=== PATIENT | female | born 1935 | race African-American/Black ===

== ENCOUNTER 2020-06-18 09:23 | Inpatient (IN) | payer BC ==
[~2020-06-18] VITALS: Ht 165.1 cm; Wt 70.4 kg
[2020-06-18 11:09] LABS: BASOPHILS % 0.7 % (0.0-2.0); EOSINOPHILS % 0.2 % (0.0-5.0); LYMPHOCYTES % 19.1 % (20.0-50.0); MEAN CORPUSCULAR HEMOGLOBIN 26.2 pg (28.0-32.0); MEAN CORPUSCULAR VOLUME 85.7 fL (81.0-99.0); MEAN PLATELET VOLUME 7.5 fl (7.4-10.4); MONOCYTES % 8.1 % (2.0-8.0); NEUTROPHILS % 71.9 % (40.0-76.0); PLATELET 206 x1000/uL (130-400); RED BLOOD CELL COUNT 2.04 mill/uL (4.2-5.4); RED CELL DISTRIBUTION WIDTH 17.5 % (11.6-14.6)
[2020-06-18 11:13] LABS: CHLORIDE 112 mEq/L (98-107); HEMOGLOBIN. 5.4 g/dL (12.0-16.0)
[2020-06-18 11:14] LABS: HEMATOCRIT. 17.5 % (36.0-48.0)
[2020-06-18] MEDS ORDERED: CLONIDINE 0.1MG TABLET PO PRN (20:45)
[2020-06-18] MEDS ORDERED: ONDANSETRON HCL 4MG/2ML INJ IV PRN (20:45)
[2020-06-18] MEDS ORDERED: DEXTROSE 50% WATER 50ML SYRINGE IV PRN (20:45)
[2020-06-18] MEDS ORDERED: ACETAMINOPHEN 325MG TABLET PO PRN (20:45)
[2020-06-18] MEDS: BLOOD SUGAR DIAGNOSTIC STRIP TEST SCH (21:00)
[2020-06-18] MEDS: INSULIN LISPRO 100 UNITS/ML SUBCUT SCH (21:50)
[2020-06-18] MEDS: SODIUM CHLORIDE 0.9% 1,000 ML IV SCH (21:50)
[2020-06-18] MEDS: PANTOPRAZOLE SODIUM 40 MG/VIAL IV SCH (21:50)
[2020-06-19] VITALS (9 sets, daily range): BP systolic 100–166; BP diastolic 60–75
[2020-06-19] MEDS: INSULIN LISPRO 100 UNITS/ML SUBCUT SCH ×4 (08:00→21:00)
[2020-06-19] MEDS: PHENYTOIN SODIUM EXTENDED 100MG CAPSULE PO SCH ×4 (08:03→23:24)
[2020-06-19] MEDS: BLOOD SUGAR DIAGNOSTIC STRIP TEST SCH ×4 (08:03→21:00)
[2020-06-19] MEDS: SODIUM CHLORIDE 0.9% 1,000 ML IV SCH (08:08)
[2020-06-19] MEDS: PANTOPRAZOLE SODIUM 40 MG/VIAL IV SCH (08:34)
[2020-06-19 09:43] LABS: HEMATOCRIT 25.9 % (36.0-48.0); HEMOGLOBIN 8.4 g/dL (12.0-16.0); MEAN CORPUSCULAR HEMOGLOBIN 27.5 pg (28.0-32.0); PLATELET 169 x1000/uL (130-400); RED BLOOD CELL COUNT 3.05 mill/uL (4.2-5.4); RED CELL DISTRIBUTION WIDTH 16.1 % (11.6-14.6)
[2020-06-19 09:59] LABS: CHLORIDE 115 mEq/L (98-107)
[2020-06-19] MEDS ORDERED: NIFE-53 PO (13:15)
[2020-06-19] MEDS ORDERED: CARV12.545 PO (13:15)
[2020-06-19] MEDS ORDERED: LISI-604 PO (13:15)
[2020-06-19] MEDS ORDERED: ASPI-1497 PO (13:15)
[2020-06-19] MEDS ORDERED: PHEN100C4 PO (13:15)
[2020-06-19] MEDS ORDERED: LEVO25TA7 PO (13:15)
[2020-06-19] MEDS ORDERED: ATOR-2 PO (13:28)
[2020-06-19] MEDS ORDERED: NETA2.5D BOTHEYE (13:28)
[2020-06-19] MEDS ORDERED: BRIM5DRO6 EACHEYE (13:28)
[2020-06-19] MEDS ORDERED: DORZ10DR9 EACHEYE (13:28)
[2020-06-19] MEDS ORDERED: LATA2.5D14 EACHEYE (13:28)
[2020-06-19] MEDS ORDERED: NON FORMULARY PATIENT HOME MED XX SCH ×4 (13:45)
[2020-06-19] MEDS ORDERED: ASPIRIN 81MG EC TABLET PO SCH (14:00)
[2020-06-19] MEDS: DORZOLAM/TIMOLOL 2.23/0.68% OPHTH DROPS 10ML EACHEYE SCH ×2 (15:02→23:22)
[2020-06-19] MEDS ORDERED: CLOP75TA33 PO (15:42)
[2020-06-19] MEDS: BRIMONIDINE 0.2% OPHTH DROPS 5ML BOTHEYE SCH (18:12)
[2020-06-19] MEDS ORDERED: NIFEDIPINE XL 30MG TAB PO SCH (21:00)
[2020-06-19] MEDS ORDERED: LISINOPRIL 20MG TABLET PO SCH (21:00)
[2020-06-19] MEDS: LATANOPROST 0.005% OPHTH DROPS 2.5ML EACHEYE SCH (23:22)
[2020-06-19] MEDS: ATORVASTATIN CALCIUM 40MG TABLET PO SCH (23:24)
[2020-06-20] VITALS: BP 124/82
[2020-06-20 04:00] VITALS: BP 99/69
[2020-06-20] MEDS: PHENYTOIN SODIUM EXTENDED 100MG CAPSULE PO SCH ×4 (06:25→17:20)
[2020-06-20] MEDS: BLOOD SUGAR DIAGNOSTIC STRIP TEST SCH ×4 (07:28→21:00)
[2020-06-20] MEDS: INSULIN LISPRO 100 UNITS/ML SUBCUT SCH ×4 (07:52→21:00)
[2020-06-20 08:00] VITALS: BP 103/59
[2020-06-20] MEDS: LEVOTHYROXINE SODIUM 25MCG TABLET PO SCH (08:18)
[2020-06-20] MEDS: BRIMONIDINE 0.2% OPHTH DROPS 5ML BOTHEYE SCH ×2 (08:20→17:20)
[2020-06-20] MEDS: DORZOLAM/TIMOLOL 2.23/0.68% OPHTH DROPS 10ML EACHEYE SCH ×2 (08:22→21:56)
[2020-06-20] MEDS: PANTOPRAZOLE SODIUM 40 MG/VIAL IV SCH (08:24)
[2020-06-20 08:26] LABS: CHLORIDE 116 mEq/L (98-107)
[2020-06-20 08:38] LABS: HEMATOCRIT 23.4 % (36.0-48.0); HEMOGLOBIN 7.6 g/dL (12.0-16.0); MEAN CORPUSCULAR HEMOGLOBIN 27.5 pg (28.0-32.0); MEAN CORPUSCULAR VOLUME 84.7 fL (81.0-99.0); PLATELET 161 x1000/uL (130-400); RED BLOOD CELL COUNT 2.76 mill/uL (4.2-5.4); RED CELL DISTRIBUTION WIDTH 16.1 % (11.6-14.6)
[2020-06-20] MEDS ORDERED: INFLUENZA VACCINE 05/PF 0.5 ML VIAL IM ONE (11:15)
[2020-06-20 12:00] VITALS: BP 120/68
[2020-06-20] MEDS ORDERED: SORBITOL 70% SOLN 30ML PO NR ×2 (15:45→21:00)
[2020-06-20 16:00] VITALS: BP 125/58
[2020-06-20] MEDS ORDERED: METOCLOPRAMIDE HCL 10MG/2ML VIAL IV NR ×2 (16:30→20:30)
[2020-06-20] MEDS ORDERED: BISACODYL 5MG TABLET PO NR ×2 (16:30→20:30)
[2020-06-20 20:00] VITALS: BP 92/66
[2020-06-20] MEDS: LATANOPROST 0.005% OPHTH DROPS 2.5ML EACHEYE SCH (21:56)
[2020-06-20] MEDS: ATORVASTATIN CALCIUM 40MG TABLET PO SCH (22:05)
[2020-06-21] VITALS (7 sets, daily range): BP systolic 98–136; BP diastolic 58–73
[2020-06-21 07:08] LABS: BASOPHILS % 0.6 % (0.0-2.0); EOSINOPHILS % 0.5 % (0.0-5.0); HEMOGLOBIN. 9.1 g/dL (12.0-16.0); LYMPHOCYTES % 22.8 % (20.0-50.0); MEAN CORPUSCULAR HEMOGLOBIN 27.2 pg (28.0-32.0); MEAN CORPUSCULAR VOLUME 86.4 fL (81.0-99.0); MEAN PLATELET VOLUME 7.9 fl (7.4-10.4); MONOCYTES % 14.3 % (2.0-8.0); NEUTROPHILS % 61.8 % (40.0-76.0); PLATELET 179 x1000/uL (130-400); RED BLOOD CELL COUNT 3.35 mill/uL (4.2-5.4); RED CELL DISTRIBUTION WIDTH 16.6 % (11.6-14.6)
[2020-06-21 07:22] LABS: INR 1.1; PROTHROMBIN TIME 11.4 sec (9.6-11.0)
[2020-06-21] MEDS: BLOOD SUGAR DIAGNOSTIC STRIP TEST SCH ×4 (07:30→21:00)
[2020-06-21] MEDS: LEVOTHYROXINE SODIUM 25MCG TABLET PO SCH (07:30)
[2020-06-21 07:31] LABS: CHLORIDE 119 mEq/L (98-107)
[2020-06-21] MEDS: INSULIN LISPRO 100 UNITS/ML SUBCUT SCH ×3 (08:00→21:00)
[2020-06-21] MEDS: PHENYTOIN SODIUM EXTENDED 100MG CAPSULE PO SCH ×3 (08:46→17:00)
[2020-06-21] MEDS: PANTOPRAZOLE SODIUM 40 MG/VIAL IV SCH (08:46)
[2020-06-21] MEDS: BRIMONIDINE 0.2% OPHTH DROPS 5ML BOTHEYE SCH ×2 (08:48→22:16)
[2020-06-21] MEDS: DORZOLAM/TIMOLOL 2.23/0.68% OPHTH DROPS 10ML EACHEYE SCH ×2 (08:48→22:16)
[2020-06-21] MEDS ORDERED: FENTANYL CITRATE/PF 50MCG/ML 2ML VIAL IV PRN (15:35)
[2020-06-21] MEDS ORDERED: MIDAZOLAM HCL 5 MG/5 ML VIAL IV PRN (15:36)
[2020-06-21] MEDS ORDERED: DIAZEPAM 5 MG/ML 2ML CPJ IV PRN (15:52)
[2020-06-21] MEDS ORDERED: DIAZEPAM 5 MG/ML 2ML CPJ ONE (15:57)
[2020-06-21] MEDS ORDERED: DIPHENHYDRAMINE 50MG/ML VIAL IV PRN (16:20)
[2020-06-21] MEDS ORDERED: DIPHENHYDRAMINE 50MG/ML VIAL ONE ×2 (16:24→16:34)
[2020-06-21] MEDS ORDERED: FENTANYL CITRATE/PF 50MCG/ML 2ML VIAL ONE (17:17)
[2020-06-21] MEDS ORDERED: MIDAZOLAM HCL 5 MG/5 ML VIAL ONE (17:17)
[2020-06-21] MEDS: ATORVASTATIN CALCIUM 40MG TABLET PO SCH (21:00)
[2020-06-21] MEDS: LATANOPROST 0.005% OPHTH DROPS 2.5ML EACHEYE SCH (22:16)
[2020-06-22] VITALS (7 sets, daily range): BP systolic 102–154; BP diastolic 48–75
[2020-06-22] MEDS: BLOOD SUGAR DIAGNOSTIC STRIP TEST SCH ×4 (07:30→21:08)
[2020-06-22] MEDS: LEVOTHYROXINE SODIUM 25MCG TABLET PO SCH (07:30)
[2020-06-22] MEDS: INSULIN LISPRO 100 UNITS/ML SUBCUT SCH ×4 (08:00→21:00)
[2020-06-22] MEDS: DEXT 5%/0.45% NACL 1000ML 1,000 ML IV SCH ×2 (08:47→20:20)
[2020-06-22] MEDS: BRIMONIDINE 0.2% OPHTH DROPS 5ML BOTHEYE SCH ×2 (08:48→17:00)
[2020-06-22] MEDS: LATANOPROST 0.005% OPHTH DROPS 2.5ML EACHEYE SCH (08:48)
[2020-06-22] MEDS: DORZOLAM/TIMOLOL 2.23/0.68% OPHTH DROPS 10ML EACHEYE SCH ×2 (08:48→21:18)
[2020-06-22] MEDS: PANTOPRAZOLE SODIUM 40 MG/VIAL IV SCH (08:48)
[2020-06-22] MEDS: PHENYTOIN SODIUM EXTENDED 100MG CAPSULE PO SCH ×3 (08:49→17:00)
[2020-06-22 12:37] LABS: BASOPHILS % 0.6 % (0.0-2.0); EOSINOPHILS % 0.9 % (0.0-5.0); HEMOGLOBIN. 9.2 g/dL (12.0-16.0); LYMPHOCYTES % 19.6 % (20.0-50.0); MEAN CORPUSCULAR HEMOGLOBIN 27.5 pg (28.0-32.0); MEAN PLATELET VOLUME 7.5 fl (7.4-10.4); MONOCYTES % 12.9 % (2.0-8.0); PLATELET 180 x1000/uL (130-400); RED BLOOD CELL COUNT 3.34 mill/uL (4.2-5.4); RED CELL DISTRIBUTION WIDTH 16.4 % (11.6-14.6)
[2020-06-22 12:55] LABS: TOTAL IRON BINDING CAPACITY 341 ug/dL (250-450)
[2020-06-22 12:59] LABS: FERRITIN 27 ng/mL (10-291)
[2020-06-22 14:52] LABS: FOLIC ACID (FOLATE) SERUM >20 ng/mL ng/mL (>5.38)
[2020-06-22 15:03] LABS: VITAMIN B12 SERUM 918 pg/mL (211-911)
[2020-06-22 20:20] LABS: BG BASE EXCESS -9.9 mmol/L (-2.0-2.0); BG CARBOXYHEMOGLOBIN 0.1 % (0.5-1.5); BG DEOXYHEMOGLOBIN 3.9 % (0.0-5.0); BG HCO3 ACT 14.5 mmol/L (22.0-26.0); BG METHEMOGLOBIN 0.1 % (0.0-1.5); BG OXYGEN SATURATION 96.1 % (92.0-98.5); BG OXYHEMOGLOBIN 95.9 % (94.0-97.0); BG PCO2 26.8 mmHg (35.0-45.0); BG SAMPLE SITE RIGHT RADIAL; BG TOTAL HEMOGLOBIN 9.5 g/dL (12.0-18.0); BG VENT MODE ROOM AIR
[2020-06-22] MEDS: ATORVASTATIN CALCIUM 40MG TABLET PO SCH (21:00)
[2020-06-22] MEDS ORDERED: LEVOFLOXACIN 500MG PREMIX 100 ML IV SCH (21:00)
[2020-06-22] MEDS: GUAIFENESIN 600MG ER TABLET PO SCH (21:00)
[2020-06-23] VITALS: BP 129/71
[2020-06-23] MEDS: ACETAMINOPHEN 650MG SUPP PR PRN ×2 (01:38→23:26)
[2020-06-23 04:00] VITALS: BP 142/85
[2020-06-23 06:45] LABS: BASOPHILS % 0.6 % (0.0-2.0); EOSINOPHILS % 0.2 % (0.0-5.0); HEMOGLOBIN. 8.5 g/dL (12.0-16.0); LYMPHOCYTES % 9.3 % (20.0-50.0); MEAN CORPUSCULAR HEMOGLOBIN 27.2 pg (28.0-32.0); MEAN CORPUSCULAR VOLUME 86.5 fL (81.0-99.0); MEAN PLATELET VOLUME 8.2 fl (7.4-10.4); MONOCYTES % 12.2 % (2.0-8.0); NEUTROPHILS % 77.7 % (40.0-76.0); PLATELET 110 x1000/uL (130-400); RED BLOOD CELL COUNT 3.12 mill/uL (4.2-5.4); RED CELL DISTRIBUTION WIDTH 16.2 % (11.6-14.6)
[2020-06-23 07:02] LABS: CHLORIDE 122 mEq/L (98-107)
[2020-06-23] MEDS: LEVOTHYROXINE SODIUM 25MCG TABLET PO SCH (07:30)
[2020-06-23] MEDS ORDERED: SODIUM BICARBONATE 4% (2.4MEQ) 5ML VIAL IV ONE (08:03)
[2020-06-23] MEDS ORDERED: LIDOCAINE HCL 1% 20ML VIAL (Pyxis) INJ ONE (08:04)
[2020-06-23] MEDS: BRIMONIDINE 0.2% OPHTH DROPS 5ML BOTHEYE SCH ×2 (09:00→17:18)
[2020-06-23] MEDS: GUAIFENESIN 600MG ER TABLET PO SCH ×2 (09:00→21:00)
[2020-06-23] MEDS: PHENYTOIN SODIUM EXTENDED 100MG CAPSULE PO SCH ×3 (09:00→17:00)
[2020-06-23] MEDS: DORZOLAM/TIMOLOL 2.23/0.68% OPHTH DROPS 10ML EACHEYE SCH ×2 (09:00→23:04)
[2020-06-23] MEDS ORDERED: IOHEXOL-300 100 ML BOTTLE ONE (09:42)
[2020-06-23] MEDS ORDERED: PIPERACILLIN/TAZOBACTAM 3.375 G/VIAL IV SCH (10:00)
[2020-06-23 12:00] VITALS: BP 116/45
[2020-06-23] MEDS: INSULIN LISPRO 100 UNITS/ML SUBCUT SCH ×3 (12:42→21:00)
[2020-06-23] MEDS: FERROUS SULFATE 300MG/5ML UDC PO SCH ×2 (12:50→17:18)
[2020-06-23] MEDS: BLOOD SUGAR DIAGNOSTIC STRIP TEST SCH ×3 (12:59→21:00)
[2020-06-23] MEDS: ASCORBIC ACID 500 MG TABLET PO SCH (13:00)
[2020-06-23] MEDS: DEXT 5%/0.45% NACL 1000ML 1,000 ML IV SCH ×2 (13:27→23:05)
[2020-06-23] MEDS: PIPERACILLIN/TAZOBACTAM 3.375 G in DEXT 5% WATER 100 ML IV SCH ×2 (13:27→23:02)
[2020-06-23] MEDS ORDERED: LEVOFLOXACIN 250MG PREMIX 50 ML IV SCH ×2 (14:00→21:00)
[2020-06-23 20:00] VITALS: BP 125/52
[2020-06-23] MEDS: LATANOPROST 0.005% OPHTH DROPS 2.5ML EACHEYE SCH (23:04)
[2020-06-23] MEDS: CARVEDILOL 12.5MG TABLET PO SCH (23:12)
[2020-06-23] MEDS: ATORVASTATIN CALCIUM 40MG TABLET PO SCH (23:12)
[2020-06-24] MEDS: PIPERACILLIN/TAZOBACTAM 3.375 G in DEXT 5% WATER 100 ML IV SCH ×2 (03:15→11:11)
[2020-06-24] MEDS ORDERED: NON FORMULARY PATIENT HOME MED PO PRN (06:15)
[2020-06-24] MEDS ORDERED: GUAIFENESIN/CODEINE 200-20MG/10ML UDC PO PRN (06:30)
[2020-06-24] MEDS: DEXT 5%/0.45% NACL 1000ML 1,000 ML IV SCH ×2 (07:12→18:45)
[2020-06-24] MEDS: LEVOTHYROXINE SODIUM 25MCG TABLET PO SCH (07:20)
[2020-06-24 07:29] LABS: BASOPHILS % 0.3 % (0.0-2.0); EOSINOPHILS % 0.2 % (0.0-5.0); HEMATOCRIT. 25.8 % (36.0-48.0); HEMOGLOBIN. 8.2 g/dL (12.0-16.0); LYMPHOCYTES % 11.6 % (20.0-50.0); MEAN CORPUSCULAR HEMOGLOBIN 27.3 pg (28.0-32.0); MEAN CORPUSCULAR VOLUME 86.1 fL (81.0-99.0); MEAN PLATELET VOLUME 7.5 fl (7.4-10.4); MONOCYTES % 13.2 % (2.0-8.0); NEUTROPHILS % 74.7 % (40.0-76.0); PLATELET 160 x1000/uL (130-400); RED BLOOD CELL COUNT 2.99 mill/uL (4.2-5.4); RED CELL DISTRIBUTION WIDTH 16.4 % (11.6-14.6)
[2020-06-24 07:41] LABS: CHLORIDE 118 mEq/L (98-107)
[2020-06-24] MEDS: INSULIN LISPRO 100 UNITS/ML SUBCUT SCH ×4 (07:48→21:00)
[2020-06-24] MEDS: BLOOD SUGAR DIAGNOSTIC STRIP TEST SCH ×4 (07:48→21:00)
[2020-06-24] MEDS: FERROUS SULFATE 300MG/5ML UDC PO SCH ×3 (07:50→17:50)
[2020-06-24 08:00] VITALS: BP 108/58
[2020-06-24] MEDS: PHENYTOIN SODIUM EXTENDED 100MG CAPSULE PO SCH ×3 (09:00→17:00)
[2020-06-24] MEDS: ASCORBIC ACID 500 MG TABLET PO SCH (09:00)
[2020-06-24] MEDS: GUAIFENESIN 600MG ER TABLET PO SCH ×2 (09:00→21:00)
[2020-06-24] MEDS: CARVEDILOL 12.5MG TABLET PO SCH ×2 (09:00→21:00)
[2020-06-24] MEDS: PANTOPRAZOLE SODIUM 40 MG/VIAL IV SCH ×2 (10:58→11:11)
[2020-06-24] MEDS: DORZOLAM/TIMOLOL 2.23/0.68% OPHTH DROPS 10ML EACHEYE SCH ×2 (10:59→21:00)
[2020-06-24] MEDS: BRIMONIDINE 0.2% OPHTH DROPS 5ML BOTHEYE SCH ×2 (10:59→18:45)
[2020-06-24] MEDS ORDERED: IOHEXOL-350 100 ML BOTTLE ONE (13:44)
[2020-06-24] MEDS: LORAZEPAM 2MG/ML CPJ IV PRN (14:54)
[2020-06-24] MEDS: MEROPENEM 1,000 MG in SODIUM CHLORIDE 0.9% 100 ML IV SCH ×2 (14:54→22:13)
[2020-06-24] MEDS: ENOXAPARIN 80MG/0.8ML SYR SUBCUT SCH ×2 (14:55→23:33)
[2020-06-24 16:00] VITALS: BP 147/64
[2020-06-24 17:23] LABS: BG BASE EXCESS -8.8 mmol/L (-2.0-2.0); BG CARBOXYHEMOGLOBIN 0.3 % (0.5-1.5); BG DEOXYHEMOGLOBIN 2.7 % (0.0-5.0); BG FRACTION INSPIRED OXYGEN 21; BG HCO3 ACT 15.4 mmol/L (22.0-26.0); BG METHEMOGLOBIN 0.3 % (0.0-1.5); BG OXYGEN SATURATION 97.3 % (92.0-98.5); BG OXYHEMOGLOBIN 96.7 % (94.0-97.0); BG PCO2 27.2 mmHg (35.0-45.0); BG PH 7.371 (7.350-7.450); BG PO2 93.3 mmHg (75.0-100.0); BG SAMPLE SITE RIGHT RADIAL; BG TOTAL HEMOGLOBIN 8.6 g/dL (12.0-18.0); BG VENT MODE ROOM AIR
[2020-06-24 20:00] VITALS: BP 133/57
[2020-06-24] MEDS: LATANOPROST 0.005% OPHTH DROPS 2.5ML EACHEYE SCH (21:00)
[2020-06-24] MEDS: ATORVASTATIN CALCIUM 40MG TABLET PO SCH (21:00)
[2020-06-25] VITALS: BP 104/74
[2020-06-25] MEDS: IPRATROPIUM/ALBUTEROL 0.5-3(2.5)MG/3ML NEB HHN SCH ×2 (01:05→21:35)
[2020-06-25 04:00] VITALS: BP 139/43
[2020-06-25] MEDS: MEROPENEM 1,000 MG in SODIUM CHLORIDE 0.9% 100 ML IV SCH ×3 (05:40→22:15)
[2020-06-25] MEDS: DEXT 5%/0.45% NACL 1000ML 1,000 ML IV SCH ×3 (05:41→22:18)
[2020-06-25] MEDS: LEVOTHYROXINE SODIUM 25MCG TABLET PO SCH (06:29)
[2020-06-25] MEDS: BLOOD SUGAR DIAGNOSTIC STRIP TEST SCH ×4 (06:31→21:00)
[2020-06-25] MEDS: INSULIN LISPRO 100 UNITS/ML SUBCUT SCH ×4 (06:35→22:26)
[2020-06-25 08:00] VITALS: BP 115/45
[2020-06-25] MEDS: PHENYTOIN SODIUM EXTENDED 100MG CAPSULE PO SCH ×2 (09:00→09:48)
[2020-06-25] MEDS: GUAIFENESIN 600MG ER TABLET PO SCH ×3 (09:00→21:00)
[2020-06-25] MEDS: PANTOPRAZOLE SODIUM 40 MG/VIAL IV SCH ×2 (09:48→18:02)
[2020-06-25] MEDS: FERROUS SULFATE 300MG/5ML UDC PO SCH ×3 (09:48→17:50)
[2020-06-25] MEDS: ENOXAPARIN 80MG/0.8ML SYR SUBCUT SCH ×2 (09:48→21:00)
[2020-06-25] MEDS: ASCORBIC ACID 500 MG TABLET PO SCH (09:48)
[2020-06-25] MEDS: CARVEDILOL 12.5MG TABLET PO SCH ×2 (09:49→21:00)
[2020-06-25 09:57] LABS: CHLORIDE 116 mEq/L (98-107)
[2020-06-25] MEDS: BRIMONIDINE 0.2% OPHTH DROPS 5ML BOTHEYE SCH ×2 (10:01→18:02)
[2020-06-25] MEDS: DORZOLAM/TIMOLOL 2.23/0.68% OPHTH DROPS 10ML EACHEYE SCH ×2 (10:01→22:16)
[2020-06-25 11:25] LABS: BASOPHILS % 0.5 % (0.0-2.0); EOSINOPHILS % 0.1 % (0.0-5.0); HEMATOCRIT. 26.7 % (36.0-48.0); LYMPHOCYTES % 14.1 % (20.0-50.0); MEAN CORPUSCULAR HEMOGLOBIN 26.8 pg (28.0-32.0); MEAN CORPUSCULAR VOLUME 87.5 fL (81.0-99.0); MONOCYTES % 7.8 % (2.0-8.0); NEUTROPHILS % 77.5 % (40.0-76.0); RED BLOOD CELL COUNT 3.05 mill/uL (4.2-5.4); RED CELL DISTRIBUTION WIDTH 16.7 % (11.6-14.6)
[2020-06-25 11:26] LABS: HEMOGLOBIN. 8.2 g/dL (12.0-16.0)
[2020-06-25 12:00] VITALS: BP 106/42
[2020-06-25 12:38] LABS: MEAN PLATELET VOLUME 8.1 fl (7.4-10.4); PLATELET 106 x1000/uL (130-400)
[2020-06-25] MEDS ORDERED: POTASSIUM CHLORIDE INJ 40 MEQ in DEXT 5% WATER 250 ML IV NR (13:00)
[2020-06-25 16:00] VITALS: BP 134/77
[2020-06-25] MEDS: METHYLPREDNISOLONE SOD SUCC 40 MG/ML VIAL IV SCH (18:02)
[2020-06-25 20:00] VITALS: BP 115/58
[2020-06-25] MEDS: ATORVASTATIN CALCIUM 40MG TABLET PO SCH (21:00)
[2020-06-25] MEDS: LATANOPROST 0.005% OPHTH DROPS 2.5ML EACHEYE SCH (22:16)
[2020-06-26] MEDS: METHYLPREDNISOLONE SOD SUCC 40 MG/ML VIAL IV SCH ×3 (02:46→17:37)
[2020-06-26] MEDS: MEROPENEM 1,000 MG in SODIUM CHLORIDE 0.9% 100 ML IV SCH ×2 (05:48→15:03)
[2020-06-26] MEDS: BLOOD SUGAR DIAGNOSTIC STRIP TEST SCH ×4 (06:37→21:00)
[2020-06-26] MEDS: LEVOTHYROXINE SODIUM 25MCG TABLET PO SCH (06:38)
[2020-06-26] MEDS: FERROUS SULFATE 300MG/5ML UDC PO SCH ×3 (07:50→17:50)
[2020-06-26 08:00] VITALS: BP 155/55
[2020-06-26] MEDS: GUAIFENESIN 600MG ER TABLET PO SCH ×2 (09:00→21:00)
[2020-06-26] MEDS: ASCORBIC ACID 500 MG TABLET PO SCH (09:00)
[2020-06-26] MEDS: CARVEDILOL 12.5MG TABLET PO SCH ×2 (09:00→21:00)
[2020-06-26] MEDS: PHENYTOIN SODIUM 100MG/2ML VIAL IV SCH ×3 (09:58→17:37)
[2020-06-26] MEDS: ENOXAPARIN 80MG/0.8ML SYR SUBCUT SCH ×2 (09:58→23:52)
[2020-06-26] MEDS: DORZOLAM/TIMOLOL 2.23/0.68% OPHTH DROPS 10ML EACHEYE SCH ×2 (09:59→23:54)
[2020-06-26] MEDS: BRIMONIDINE 0.2% OPHTH DROPS 5ML BOTHEYE SCH ×2 (09:59→17:49)
[2020-06-26] MEDS: PANTOPRAZOLE SODIUM 40 MG/VIAL IV SCH ×2 (10:11→17:37)
[2020-06-26] MEDS: INSULIN LISPRO 100 UNITS/ML SUBCUT SCH ×4 (10:11→23:58)
[2020-06-26] MEDS: DEXT 5%/0.45% NACL 1000ML 1,000 ML IV SCH ×2 (11:17→20:00)
[2020-06-26] MEDS ORDERED: IOHEXOL-300 100 ML BOTTLE ONE (11:56)
[2020-06-26 12:00] VITALS: BP 115/78
[2020-06-26 16:00] VITALS: BP 124/99
[2020-06-26] MEDS: IPRATROPIUM/ALBUTEROL 0.5-3(2.5)MG/3ML NEB HHN SCH ×2 (16:29→21:46)
[2020-06-26 20:00] VITALS: BP 100/66
[2020-06-26] MEDS: ATORVASTATIN CALCIUM 40MG TABLET PO SCH (21:00)
[2020-06-26] MEDS: LATANOPROST 0.005% OPHTH DROPS 2.5ML EACHEYE SCH (23:54)
[2020-06-26] MEDS: LORAZEPAM 2MG/ML CPJ IV PRN (23:59)
[2020-06-27] VITALS: BP 122/52
[2020-06-27] MEDS: METHYLPREDNISOLONE SOD SUCC 40 MG/ML VIAL IV SCH ×3 (02:56→20:06)
[2020-06-27] MEDS: MEROPENEM 1,000 MG in SODIUM CHLORIDE 0.9% 100 ML IV SCH ×3 (02:56→15:20)
[2020-06-27 04:20] VITALS: BP 110/50
[2020-06-27] MEDS: LEVOTHYROXINE SODIUM 25MCG TABLET PO SCH (06:26)
[2020-06-27] MEDS: DEXT 5%/0.45% NACL 1000ML 1,000 ML IV SCH ×2 (06:27→15:22)
[2020-06-27] MEDS: BLOOD SUGAR DIAGNOSTIC STRIP TEST SCH ×4 (06:34→21:00)
[2020-06-27] MEDS: FERROUS SULFATE 300MG/5ML UDC PO SCH ×3 (07:50→17:50)
[2020-06-27] MEDS: INSULIN LISPRO 100 UNITS/ML SUBCUT SCH ×4 (07:50→21:00)
[2020-06-27 08:00] VITALS: BP 77/36
[2020-06-27] MEDS: IPRATROPIUM/ALBUTEROL 0.5-3(2.5)MG/3ML NEB HHN SCH ×3 (08:49→21:20)
[2020-06-27] MEDS: CARVEDILOL 12.5MG TABLET PO SCH ×2 (09:00→21:00)
[2020-06-27] MEDS: ASCORBIC ACID 500 MG TABLET PO SCH (09:00)
[2020-06-27] MEDS: GUAIFENESIN 600MG ER TABLET PO SCH ×2 (09:00→21:00)
[2020-06-27] MEDS: PHENYTOIN SODIUM 100MG/2ML VIAL IV SCH ×3 (09:16→20:06)
[2020-06-27] MEDS: BRIMONIDINE 0.2% OPHTH DROPS 5ML BOTHEYE SCH ×2 (09:16→20:08)
[2020-06-27] MEDS: DORZOLAM/TIMOLOL 2.23/0.68% OPHTH DROPS 10ML EACHEYE SCH ×2 (09:16→20:09)
[2020-06-27] MEDS: ENOXAPARIN 80MG/0.8ML SYR SUBCUT SCH ×2 (09:17→21:00)
[2020-06-27] MEDS: PANTOPRAZOLE SODIUM 40 MG/VIAL IV SCH ×2 (09:17→20:06)
[2020-06-27] MEDS: THROAT LOZENGES-BENZOCAINE/MENTH/CETYLPYRD CL LOZENGES MM PRN ×2 (10:18→20:06)
[2020-06-27 16:00] VITALS: BP 131/89
[2020-06-27 20:00] VITALS: BP 128/76
[2020-06-27] MEDS: CEFTRIAXONE 1,000 MG in DEXTROSE 5% WATER 50 ML IV SCH (20:13)
[2020-06-27] MEDS: LORAZEPAM 2MG/ML CPJ IV PRN ×2 (22:29→22:42)
[2020-06-27] MEDS: ATORVASTATIN CALCIUM 40MG TABLET PO SCH (22:29)
[2020-06-27] MEDS: METRONIDAZOLE 500 MG PREMIX 100 ML IV SCH (22:30)
[2020-06-27] MEDS: LATANOPROST 0.005% OPHTH DROPS 2.5ML EACHEYE SCH (22:31)
[2020-06-28] VITALS: BP 131/69
[2020-06-28] MEDS: METHYLPREDNISOLONE SOD SUCC 40 MG/ML VIAL IV SCH ×3 (01:30→18:00)
[2020-06-28 04:00] VITALS: BP 130/70
[2020-06-28 04:48] LABS: HEMATOCRIT. 25.1 % (36.0-48.0); HEMOGLOBIN. 8.1 g/dL (12.0-16.0); MEAN CORPUSCULAR HEMOGLOBIN 26.9 pg (28.0-32.0); MEAN CORPUSCULAR VOLUME 83.3 fL (81.0-99.0); MEAN PLATELET VOLUME 7.8 fl (7.4-10.4); PLATELET 225 x1000/uL (130-400); RED BLOOD CELL COUNT 3.02 mill/uL (4.2-5.4); RED CELL DISTRIBUTION WIDTH 16.2 % (11.6-14.6)
[2020-06-28 05:45] LABS: INR 1.2; PARTIAL THROMBOPLASTIN TIME 28.6 sec (23.4-31.0); PROTHROMBIN TIME 12.3 sec (9.6-11.0)
[2020-06-28 06:28] LABS: CHLORIDE 116 mEq/L (98-107)
[2020-06-28] MEDS: BLOOD SUGAR DIAGNOSTIC STRIP TEST SCH ×4 (07:20→21:00)
[2020-06-28] MEDS: LEVOTHYROXINE SODIUM 25MCG TABLET PO SCH (07:20)
[2020-06-28] MEDS: FERROUS SULFATE 300MG/5ML UDC PO SCH ×3 (07:50→17:55)
[2020-06-28] MEDS: INSULIN LISPRO 100 UNITS/ML SUBCUT SCH ×4 (07:50→21:00)
[2020-06-28 08:00] VITALS: BP 102/80
[2020-06-28] MEDS: ENOXAPARIN 80MG/0.8ML SYR SUBCUT SCH ×2 (09:00→22:27)
[2020-06-28] MEDS: CARVEDILOL 12.5MG TABLET PO SCH ×2 (09:00→22:25)
[2020-06-28] MEDS: ASCORBIC ACID 500 MG TABLET PO SCH (09:00)
[2020-06-28] MEDS: GUAIFENESIN 600MG ER TABLET PO SCH ×2 (09:00→21:00)
[2020-06-28] MEDS: METRONIDAZOLE 500 MG PREMIX 100 ML IV SCH ×2 (09:57→22:23)
[2020-06-28] MEDS: BRIMONIDINE 0.2% OPHTH DROPS 5ML BOTHEYE SCH ×2 (09:59→17:40)
[2020-06-28] MEDS: DORZOLAM/TIMOLOL 2.23/0.68% OPHTH DROPS 10ML EACHEYE SCH ×2 (09:59→22:31)
[2020-06-28] MEDS: DEXT 5%/0.45% NACL 1000ML 1,000 ML IV SCH ×2 (10:00→11:37)
[2020-06-28] MEDS: PANTOPRAZOLE SODIUM 40 MG/VIAL IV SCH ×2 (10:07→17:43)
[2020-06-28] MEDS: PHENYTOIN SODIUM 100MG/2ML VIAL IV SCH ×3 (10:08→17:57)
[2020-06-28] MEDS ORDERED: MIDAZOLAM HCL 5 MG/5 ML VIAL ONE (12:34)
[2020-06-28] MEDS ORDERED: PROPOFOL 200MG/20ML VIAL IV ONE (12:34)
[2020-06-28] MEDS ORDERED: SUCCINYLCHOLINE CHLORIDE 200MG/10ML IV ONE (12:38)
[2020-06-28] MEDS ORDERED: FLUMAZENIL 0.1 MG/ML 5ML VIAL IV ONE (13:04)
[2020-06-28] MEDS ORDERED: LABETALOL 5MG/ML SYR 20 MG/4 ML SYRINGE IV ONE (14:00)
[2020-06-28] MEDS ORDERED: HYDRALAZINE 20MG/ML VIAL IV ONE (14:45)
[2020-06-28 15:10] LABS: PLATELET ESTIMATE NORMAL
[2020-06-28 16:00] VITALS: BP 132/69
[2020-06-28] MEDS: CEFTRIAXONE 1,000 MG in DEXTROSE 5% WATER 50 ML IV SCH (17:57)
[2020-06-28] MEDS: ATORVASTATIN CALCIUM 40MG TABLET PO SCH (22:25)
[2020-06-28] MEDS: LATANOPROST 0.005% OPHTH DROPS 2.5ML EACHEYE SCH (22:31)
[2020-06-29] VITALS: BP 100/65
[2020-06-29] MEDS: METOCLOPRAMIDE HCL 10MG/2ML VIAL IV SCH ×4 (00:33→19:02)
[2020-06-29] MEDS: METHYLPREDNISOLONE SOD SUCC 40 MG/ML VIAL IV SCH ×3 (01:45→18:51)
[2020-06-29] MEDS: DEXT 5%/0.45% NACL 1000ML 1,000 ML IV SCH ×2 (01:52→10:24)
[2020-06-29 04:00] VITALS: BP 157/66
[2020-06-29] MEDS: IPRATROPIUM/ALBUTEROL 0.5-3(2.5)MG/3ML NEB HHN SCH ×3 (06:00→22:16)
[2020-06-29] MEDS: LEVOTHYROXINE SODIUM 25MCG TABLET PO SCH (07:07)
[2020-06-29] MEDS: INSULIN LISPRO 100 UNITS/ML SUBCUT SCH ×4 (07:50→21:00)
[2020-06-29 08:00] VITALS: BP 140/70
[2020-06-29] MEDS: BLOOD SUGAR DIAGNOSTIC STRIP TEST SCH ×4 (08:11→21:00)
[2020-06-29 08:40] LABS: BASOPHILS % 0.4 % (0.0-2.0); MEAN CORPUSCULAR VOLUME 83.7 fL (81.0-99.0); MEAN PLATELET VOLUME 8.3 fl (7.4-10.4); MONOCYTES % 4.7 % (2.0-8.0); NEUTROPHILS % 86.9 % (40.0-76.0); PLATELET 258 x1000/uL (130-400); RED BLOOD CELL COUNT 3.57 mill/uL (4.2-5.4); RED CELL DISTRIBUTION WIDTH 16.3 % (11.6-14.6)
[2020-06-29 08:49] LABS: HEMATOCRIT. 29.9 % (36.0-48.0); HEMOGLOBIN. 9.6 g/dL (12.0-16.0)
[2020-06-29] MEDS: GUAIFENESIN 600MG ER TABLET PO SCH (09:00)
[2020-06-29 09:01] LABS: CHLORIDE 113 mEq/L (98-107)
[2020-06-29] MEDS: BRIMONIDINE 0.2% OPHTH DROPS 5ML BOTHEYE SCH (10:19)
[2020-06-29] MEDS: DORZOLAM/TIMOLOL 2.23/0.68% OPHTH DROPS 10ML EACHEYE SCH (10:20)
[2020-06-29] MEDS: FERROUS SULFATE 300MG/5ML UDC PO SCH ×3 (10:21→18:51)
[2020-06-29] MEDS: PANTOPRAZOLE SODIUM 40 MG/VIAL IV SCH ×2 (10:22→18:51)
[2020-06-29] MEDS: ASCORBIC ACID 500 MG TABLET PO SCH (10:22)
[2020-06-29] MEDS: METRONIDAZOLE 500 MG PREMIX 100 ML IV SCH (10:22)
[2020-06-29] MEDS: CARVEDILOL 12.5MG TABLET PO SCH (10:22)
[2020-06-29] MEDS: PHENYTOIN SODIUM 100MG/2ML VIAL IV SCH ×3 (10:22→18:52)
[2020-06-29] MEDS: ENOXAPARIN 80MG/0.8ML SYR SUBCUT SCH (10:23)
[2020-06-29] MEDS ORDERED: APIX5TAB MT (17:26)
[2020-06-29] MEDS: CEFTRIAXONE 1,000 MG in DEXTROSE 5% WATER 50 ML IV SCH (18:49)
[2020-06-30] VITALS: BP 142/71
[2020-06-30] MEDS: LATANOPROST 0.005% OPHTH DROPS 2.5ML EACHEYE SCH ×2 (01:05→23:54)
[2020-06-30] MEDS: DORZOLAM/TIMOLOL 2.23/0.68% OPHTH DROPS 10ML EACHEYE SCH ×3 (01:09→23:54)
[2020-06-30] MEDS: METRONIDAZOLE 500 MG PREMIX 100 ML IV SCH ×3 (01:11→23:53)
[2020-06-30] MEDS: CARVEDILOL 12.5MG TABLET PO SCH ×3 (01:24→23:50)
[2020-06-30] MEDS: GUAIFENESIN 600MG ER TABLET PO SCH ×3 (01:26→23:50)
[2020-06-30] MEDS: ATORVASTATIN CALCIUM 40MG TABLET PO SCH ×2 (01:26→23:50)
[2020-06-30] MEDS: ENOXAPARIN 80MG/0.8ML SYR SUBCUT SCH ×3 (01:28→23:52)
[2020-06-30] MEDS: METOCLOPRAMIDE HCL 10MG/2ML VIAL IV SCH ×4 (02:07→17:45)
[2020-06-30] MEDS: METHYLPREDNISOLONE SOD SUCC 40 MG/ML VIAL IV SCH ×3 (02:08→17:45)
[2020-06-30 04:00] VITALS: BP 125/73
[2020-06-30] MEDS: IPRATROPIUM/ALBUTEROL 0.5-3(2.5)MG/3ML NEB HHN SCH ×4 (04:58→20:57)
[2020-06-30 07:09] LABS: CHLORIDE 114 mEq/L (98-107)
[2020-06-30 07:15] LABS: HEMATOCRIT 30.5 % (36.0-48.0); HEMOGLOBIN 9.6 g/dL (12.0-16.0); MEAN CORPUSCULAR HEMOGLOBIN 26.6 pg (28.0-32.0); MEAN CORPUSCULAR VOLUME 84.1 fL (81.0-99.0); PLATELET 298 x1000/uL (130-400); RED BLOOD CELL COUNT 3.62 mill/uL (4.2-5.4); RED CELL DISTRIBUTION WIDTH 16.6 % (11.6-14.6)
[2020-06-30] MEDS: BLOOD SUGAR DIAGNOSTIC STRIP TEST SCH ×4 (07:20→21:00)
[2020-06-30] MEDS: INSULIN LISPRO 100 UNITS/ML SUBCUT SCH ×3 (07:50→17:50)
[2020-06-30 08:00] VITALS: BP 123/50
[2020-06-30] MEDS: BRIMONIDINE 0.2% OPHTH DROPS 5ML BOTHEYE SCH ×3 (09:00→23:54)
[2020-06-30] MEDS: FERROUS SULFATE 300MG/5ML UDC PO SCH ×3 (10:03→17:45)
[2020-06-30] MEDS: PHENYTOIN SODIUM 100MG/2ML VIAL IV SCH ×3 (10:03→17:45)
[2020-06-30] MEDS: LEVOTHYROXINE SODIUM 25MCG TABLET PO SCH (10:03)
[2020-06-30] MEDS: PANTOPRAZOLE SODIUM 40 MG/VIAL IV SCH ×2 (10:03→17:45)
[2020-06-30] MEDS: ASCORBIC ACID 500 MG TABLET PO SCH (10:04)
[2020-06-30 12:00] VITALS: BP 143/59
[2020-06-30] MEDS: ACETAMINOPHEN 325MG TABLET PO PRN (13:03)
[2020-06-30 16:00] VITALS: BP 148/73
[2020-06-30] MEDS: CEFTRIAXONE 1,000 MG in DEXTROSE 5% WATER 50 ML IV SCH (17:45)
[2020-06-30 20:00] VITALS: BP 157/71
[2020-07-01] VITALS: BP 169/70
[2020-07-01] MEDS: INSULIN LISPRO 100 UNITS/ML SUBCUT SCH ×5 (00:24→21:00)
[2020-07-01 04:00] VITALS: BP 149/75
[2020-07-01] MEDS: METHYLPREDNISOLONE SOD SUCC 40 MG/ML VIAL IV SCH ×2 (06:06→09:55)
[2020-07-01] MEDS: LEVOTHYROXINE SODIUM 25MCG TABLET PO SCH (06:07)
[2020-07-01] MEDS: BLOOD SUGAR DIAGNOSTIC STRIP TEST SCH ×4 (07:41→21:00)
[2020-07-01 08:00] VITALS: BP 158/70
[2020-07-01] MEDS: ASCORBIC ACID 500 MG TABLET PO SCH (09:55)
[2020-07-01] MEDS: PANTOPRAZOLE SODIUM 40 MG/VIAL IV SCH ×2 (09:55→17:55)
[2020-07-01] MEDS: METRONIDAZOLE 500 MG PREMIX 100 ML IV SCH (09:55)
[2020-07-01] MEDS: PHENYTOIN SODIUM 100MG/2ML VIAL IV SCH ×3 (09:55→17:55)
[2020-07-01] MEDS: ENOXAPARIN 80MG/0.8ML SYR SUBCUT SCH (09:56)
[2020-07-01] MEDS: GUAIFENESIN 600MG ER TABLET PO SCH (09:56)
[2020-07-01] MEDS: DORZOLAM/TIMOLOL 2.23/0.68% OPHTH DROPS 10ML EACHEYE SCH ×2 (09:56→23:19)
[2020-07-01] MEDS: FERROUS SULFATE 300MG/5ML UDC PO SCH ×3 (09:56→17:55)
[2020-07-01] MEDS: CARVEDILOL 12.5MG TABLET PO SCH ×2 (09:56→23:22)
[2020-07-01] MEDS: ACETAMINOPHEN 325MG TABLET PO PRN ×2 (10:17→17:56)
[2020-07-01 12:00] VITALS: BP 158/70
[2020-07-01] MEDS: IPRATROPIUM/ALBUTEROL 0.5-3(2.5)MG/3ML NEB HHN SCH ×2 (13:40→21:23)
[2020-07-01] MEDS: BRIMONIDINE 0.2% OPHTH DROPS 5ML BOTHEYE SCH (17:00)
[2020-07-01 20:00] VITALS: BP 149/70
[2020-07-01] MEDS: ATORVASTATIN CALCIUM 40MG TABLET PO SCH (23:18)
[2020-07-01] MEDS: LATANOPROST 0.005% OPHTH DROPS 2.5ML EACHEYE SCH (23:19)
[2020-07-02] VITALS: BP 149/75
[2020-07-02] MEDS: IPRATROPIUM/ALBUTEROL 0.5-3(2.5)MG/3ML NEB HHN SCH ×2 (00:56→09:03)
[2020-07-02 04:00] VITALS: BP 144/50
[2020-07-02] MEDS: BLOOD SUGAR DIAGNOSTIC STRIP TEST SCH ×2 (07:20→12:53)
[2020-07-02] MEDS: INSULIN LISPRO 100 UNITS/ML SUBCUT SCH ×2 (07:50→12:50)
[2020-07-02 08:00] VITALS: BP 151/65
[2020-07-02 08:02] LABS: HEMATOCRIT 23.3 % (36.0-48.0); HEMOGLOBIN 7.6 g/dL (12.0-16.0); MEAN CORPUSCULAR HEMOGLOBIN 27.3 pg (28.0-32.0); MEAN CORPUSCULAR VOLUME 83.6 fL (81.0-99.0); PLATELET 319 x1000/uL (130-400); RED BLOOD CELL COUNT 2.79 mill/uL (4.2-5.4); RED CELL DISTRIBUTION WIDTH 17.1 % (11.6-14.6)
[2020-07-02 08:05] LABS: CHLORIDE 114 mEq/L (98-107)
[2020-07-02] MEDS ORDERED: APIXABAN 5 MG TABLET PO SCH (09:00)
[2020-07-02] MEDS ORDERED: METHYLPREDNISOLONE SOD SUCC 40 MG/ML VIAL IV SCH (09:00)
[2020-07-02] MEDS: CARVEDILOL 12.5MG TABLET PO SCH (09:08)
[2020-07-02] MEDS: PANTOPRAZOLE SODIUM 40 MG/VIAL IV SCH (09:09)
[2020-07-02] MEDS: PHENYTOIN SODIUM 100MG/2ML VIAL IV SCH ×2 (09:09→12:53)
[2020-07-02] MEDS: FERROUS SULFATE 300MG/5ML UDC PO SCH ×2 (09:09→12:52)
[2020-07-02] MEDS: LEVOTHYROXINE SODIUM 25MCG TABLET PO SCH (09:10)
[2020-07-02] MEDS: ASCORBIC ACID 500 MG TABLET PO SCH (09:10)
[2020-07-02] MEDS: BRIMONIDINE 0.2% OPHTH DROPS 5ML BOTHEYE SCH (09:12)
[2020-07-02] MEDS: DORZOLAM/TIMOLOL 2.23/0.68% OPHTH DROPS 10ML EACHEYE SCH (09:12)
[2020-07-02 12:00] VITALS: BP 147/75
[2020-07-02 13:03] VITALS: BP 151/65
== END 2020-07-02 15:25 | disposition home health service (06) | DRG 871 ==
LOC: ER 09:23 → MICUSO 15:41 → 5EST 06-19 03:11 → 6EST 06-23 12:05
PROVIDERS: ADMIT Internal Medicine; ATTEND Internal Medicine
PROC: 30233N1 Transfusion of Nonautologous Red Blood Cells into Peripheral Vein, Percutaneous Approach (ICD-10-PCS; 2020-06-18)
PROC: 0DJD8ZZ Inspection of Lower Intestinal Tract, Via Natural or Artificial Opening Endoscopic (ICD-10-PCS; principal; 2020-06-21)
PROC: 0DB68ZX Excision of Stomach, Via Natural or Artificial Opening Endoscopic, Diagnostic (ICD-10-PCS; 2020-06-21)
PROC: 0DB98ZX Excision of Duodenum, Via Natural or Artificial Opening Endoscopic, Diagnostic (ICD-10-PCS; 2020-06-21)
PROC: B5181ZA Fluoroscopy of Superior Vena Cava using Low Osmolar Contrast, Guidance (ICD-10-PCS; 2020-06-23)
PROC: 02HV33Z Insertion of Infusion Device into Superior Vena Cava, Percutaneous Approach (ICD-10-PCS; 2020-06-23)
PROC: B548ZZA Ultrasonography of Superior Vena Cava, Guidance (ICD-10-PCS; 2020-06-23)
PROC: 0DH63UZ Insertion of Feeding Device into Stomach, Percutaneous Approach (ICD-10-PCS; 2020-06-28)
DX: A41.51 Sepsis due to Escherichia coli [E. coli] (principal); J69.0 Pneumonitis due to inhalation of food and vomit; J96.00 Acute respiratory failure, unspecified whether with hypoxia or hypercapnia; K29.71 Gastritis, unspecified, with bleeding; I69.351 Hemiplegia and hemiparesis following cerebral infarction affecting right dominant side; Q43.8 Other specified congenital malformations of intestine; N17.9 Acute kidney failure, unspecified; E46 Unspecified protein-calorie malnutrition; I82.412 Acute embolism and thrombosis of left femoral vein; J44.0 Chronic obstructive pulmonary disease with (acute) lower respiratory infection; N39.0 Urinary tract infection, site not specified; Z16.12 Extended spectrum beta lactamase (ESBL) resistance; D50.9 Iron deficiency anemia, unspecified; D63.8 Anemia in other chronic diseases classified elsewhere; E03.9 Hypothyroidism, unspecified; E11.9 Type 2 diabetes mellitus without complications; G40.909 Epilepsy, unspecified, not intractable, without status epilepticus; G83.14 Monoplegia of lower limb affecting left nondominant side; I10 Essential (primary) hypertension; K59.00 Constipation, unspecified; Z20.822 Contact with and (suspected) exposure to COVID-19; E78.5 Hyperlipidemia, unspecified; E87.5 Hyperkalemia; K22.5 Diverticulum of esophagus, acquired; K44.9 Diaphragmatic hernia without obstruction or gangrene; K29.50 Unspecified chronic gastritis without bleeding; K83.8 Other specified diseases of biliary tract; K29.80 Duodenitis without bleeding; R13.12 Dysphagia, oropharyngeal phase; R47.02 Dysphasia; Z79.01 Long term (current) use of anticoagulants; Z79.02 Long term (current) use of antithrombotics/antiplatelets; Z79.899 Other long term (current) drug therapy; Z79.82 Long term (current) use of aspirin; Z88.2 Allergy status to sulfonamides; Z68.25 Body mass index [BMI] 25.0-25.9, adult
CPT/HCPCS: 36415; 36573; 36600; 70491; 71045; 71260; 71275; 74177; 74181; 80048; 80053; 80076; 80185; 82270; 82375; 82607; 82728; 82746; 82805; 82962; 83036; 83540; 83550; 83880; 84145; 84443; 84484; 85025; 85027; 85379; 86140; 86850; 86900; 86920; 87077; 87186; 87426; 88305; 88313; 90686; 92610; 93005; 93970; 94640; 99152; 99291; C1725; C1893; C9113; J0330; J0360; J0696; J1165; J1200; J1650; J1815; J1956; J2060; J2185; J2250; J2543; J2704; J2765; J2920; J3010; J3480; J3490; J7042; J7050; J7060; P9016; Q9967; U0003; G0500

== ENCOUNTER 2020-07-05 15:02 | Inpatient (IN) | payer BC, MEDICARE ==
[~2020-07-05] VITALS: Ht 162.6 cm; Wt 75.4 kg
[~2020-07-05 15:02] MED LIST: APIX5TAB MT; ASPI-1497 PO; ATOR-2 PO; BRIM5DRO6 EACHEYE; CARV12.545 PO; DORZ10DR9 EACHEYE; LATA2.5D14 EACHEYE; LEVO25TA7 PO; LISI-604 PO; NETA2.5D BOTHEYE; NIFE-53 PO; PHEN100C4 PO
[2020-07-05] MEDS ORDERED: MORPHINE SULFATE 4 MG/ML CPJ (NOT FOR IM USE) IV STA (16:51)
[2020-07-05] MEDS ORDERED: ONDANSETRON HCL 4MG/2ML INJ IV STA (16:51)
[2020-07-05 18:37] LABS: HEMATOCRIT. 27.2 % (36.0-48.0); HEMOGLOBIN. 8.7 g/dL (12.0-16.0); MEAN CORPUSCULAR HEMOGLOBIN 27.1 pg (28.0-32.0); MEAN CORPUSCULAR VOLUME 84.6 fL (81.0-99.0); MEAN PLATELET VOLUME 7.3 fl (7.4-10.4); PLATELET 283 x1000/uL (130-400); RED BLOOD CELL COUNT 3.22 mill/uL (4.2-5.4); RED CELL DISTRIBUTION WIDTH 17.7 % (11.6-14.6)
[2020-07-05 18:43] LABS: CHLORIDE 111 mEq/L (98-107)
[2020-07-05 19:21] LABS: PLATELET ESTIMATE NORMAL
[2020-07-05] MEDS ORDERED: HYDROCODONE/ACETAMINOPHEN 5/325MG TABLET PO PRN (22:15)
[2020-07-06 04:34] LABS: HEMATOCRIT. 23.7 % (36.0-48.0); HEMOGLOBIN. 7.5 g/dL (12.0-16.0); MEAN CORPUSCULAR HEMOGLOBIN 26.8 pg (28.0-32.0); MEAN CORPUSCULAR VOLUME 84.7 fL (81.0-99.0); MEAN PLATELET VOLUME 7.1 fl (7.4-10.4); PLATELET 250 x1000/uL (130-400); RED CELL DISTRIBUTION WIDTH 18.6 % (11.6-14.6)
[2020-07-06 04:43] LABS: CHLORIDE 113 mEq/L (98-107)
[2020-07-06 04:50] LABS: PLATELET ESTIMATE NORMAL
[2020-07-06 04:52] LABS: LDL CHOLESTEROL 79 mg/dL (5-100)
[2020-07-06 04:53] LABS: HDL CHOLESTEROL 53 mg/dL (40-59)
[2020-07-06 05:05] LABS: T4 FREE 1.02 ng/dL (0.76-1.46)
[2020-07-06] MEDS: FAMOTIDINE 20MG/2ML VIAL IV SCH (11:17)
[2020-07-06] MEDS: DEXT 5%/0.45% NACL 1000ML 1,000 ML IV SCH (11:17)
[2020-07-06 11:54] LABS: BG BASE EXCESS 2.1 mmol/L (-2.0-2.0); BG CARBOXYHEMOGLOBIN 0.2 % (0.5-1.5); BG DEOXYHEMOGLOBIN 1.4 % (0.0-5.0); BG FRACTION INSPIRED OXYGEN 45; BG HCO3 ACT 27.2 mmol/L (22.0-26.0); BG METHEMOGLOBIN 0.1 % (0.0-1.5); BG OXYGEN SATURATION 98.6 % (92.0-98.5); BG OXYHEMOGLOBIN 98.3 % (94.0-97.0); BG PO2 201.4 mmHg (75.0-100.0); BG SAMPLE SITE RIGHT RADIAL; BG TOTAL HEMOGLOBIN 9.8 g/dL (12.0-18.0); BG TOTAL RESPIRATORY RATE 16 b/min; BG VENT MODE VENT - AC
[2020-07-06] MEDS ORDERED: LORAZEPAM 2MG/ML CPJ IV PRN (14:15)
[2020-07-06] MEDS ORDERED: HEPARIN 5000 UNITS/ML VIAL IV PRN ×2 (14:30)
[2020-07-06 15:12] LABS: CLARITY URINE CLOUDY (CLEAR); COLOR URINE YELLOW (YELLOW); KETONES URINE TRACE (NEGATIVE); LEUKOCYTE ESTERASE URINE NEGATIVE (NEGATIVE); NITRITE URINE NEGATIVE (NEGATIVE); OCCULT BLOOD URINE NEGATIVE (NEGATIVE); PROTEIN URINE TRACE (NEGATIVE); SPECIFIC GRAVITY URINE 1.059 (1.005-1.030); UROBILINOGEN URINE 0.2 E.U./dL (0.2-1.0)
[2020-07-06 15:29] LABS: INR 1.1; PROTHROMBIN TIME 11.7 sec (9.6-11.0)
[2020-07-06] MEDS ORDERED: HEPARIN 5000 UNITS/ML VIAL IV NR (16:00)
[2020-07-06] MEDS: HEPARIN 25,000 UNITS PREMIX 250 ML IV PRN (16:03)
[2020-07-06] MEDS ORDERED: IOHEXOL-350 100 ML BOTTLE ONE ×2 (16:50→23:28)
[2020-07-06] MEDS: HYDRALAZINE 20MG/ML VIAL IV PRN (17:47)
[2020-07-06 20:40] LABS: HEMATOCRIT 26.4 % (36.0-48.0); HEMOGLOBIN 8.4 g/dL (12.0-16.0)
[2020-07-06] MEDS: LORAZEPAM 2MG/ML CPJ IV PRN (22:49)
[2020-07-07] VITALS (8 sets, daily range): BP systolic 101–170; BP diastolic 26–93
[2020-07-07] MEDS: DEXT 5%/0.45% NACL 1000ML 1,000 ML IV SCH ×2 (06:54→19:56)
[2020-07-07 07:46] LABS: BASOPHILS % 0.5 % (0.0-2.0); EOSINOPHILS % 1.1 % (0.0-5.0); HEMATOCRIT. 24.7 % (36.0-48.0); HEMOGLOBIN. 7.8 g/dL (12.0-16.0); LYMPHOCYTES % 12.7 % (20.0-50.0); MEAN CORPUSCULAR HEMOGLOBIN 26.7 pg (28.0-32.0); MEAN CORPUSCULAR VOLUME 84.4 fL (81.0-99.0); MEAN PLATELET VOLUME 7.4 fl (7.4-10.4); MONOCYTES % 14.1 % (2.0-8.0); NEUTROPHILS % 71.6 % (40.0-76.0); PLATELET 296 x1000/uL (130-400); RED BLOOD CELL COUNT 2.93 mill/uL (4.2-5.4); RED CELL DISTRIBUTION WIDTH 18.8 % (11.6-14.6)
[2020-07-07 07:59] LABS: CHLORIDE 110 mEq/L (98-107)
[2020-07-07] MEDS: FAMOTIDINE 20MG/2ML VIAL IV SCH (10:06)
[2020-07-07] MEDS: HEPARIN 25,000 UNITS PREMIX 250 ML IV PRN (14:51)
[2020-07-07] MEDS ORDERED: CEFTRIAXONE 1 G PREMIX 50 ML IV SCH (17:30)
[2020-07-07] MEDS: CEFTRIAXONE 1,000 MG in DEXTROSE 5% WATER 50 ML IV SCH (20:12)
[2020-07-08] VITALS (17 sets, daily range): BP systolic 110–172; BP diastolic 59–93
[2020-07-08] MEDS: DEXT 5%/0.45% NACL 1000ML 1,000 ML IV SCH ×2 (03:00→16:20)
[2020-07-08 07:08] LABS: EOSINOPHILS % 0.8 % (0.0-5.0); HEMATOCRIT. 21.4 % (36.0-48.0); HEMOGLOBIN. 7.1 g/dL (12.0-16.0); MEAN CORPUSCULAR HEMOGLOBIN 27.5 pg (28.0-32.0); MEAN CORPUSCULAR VOLUME 83.3 fL (81.0-99.0); MEAN PLATELET VOLUME 7.4 fl (7.4-10.4); MONOCYTES % 12.3 % (2.0-8.0); NEUTROPHILS % 72.9 % (40.0-76.0); PLATELET 265 x1000/uL (130-400); RED BLOOD CELL COUNT 2.57 mill/uL (4.2-5.4); RED CELL DISTRIBUTION WIDTH 18.6 % (11.6-14.6)
[2020-07-08 07:20] LABS: CHLORIDE 110 mEq/L (98-107)
[2020-07-08] MEDS: FAMOTIDINE 20MG/2ML VIAL IV SCH (09:21)
[2020-07-08] MEDS: CEFTRIAXONE 1,000 MG in DEXTROSE 5% WATER 50 ML IV SCH (20:44)
[2020-07-09] VITALS (14 sets, daily range): BP systolic 133–171; BP diastolic 66–85
[2020-07-09] MEDS: HEPARIN 25,000 UNITS PREMIX 250 ML IV PRN (04:11)
[2020-07-09] MEDS: DEXT 5%/0.45% NACL 1000ML 1,000 ML IV SCH ×2 (06:01→20:54)
[2020-07-09 06:18] LABS: BASOPHILS % 0.5 % (0.0-2.0); EOSINOPHILS % 0.8 % (0.0-5.0); HEMOGLOBIN. 8.5 g/dL (12.0-16.0); LYMPHOCYTES % 16.4 % (20.0-50.0); MEAN CORPUSCULAR VOLUME 85.6 fL (81.0-99.0); MEAN PLATELET VOLUME 7.2 fl (7.4-10.4); NEUTROPHILS % 69.3 % (40.0-76.0); PLATELET 251 x1000/uL (130-400); RED BLOOD CELL COUNT 2.92 mill/uL (4.2-5.4); RED CELL DISTRIBUTION WIDTH 19.2 % (11.6-14.6)
[2020-07-09 06:25] LABS: CHLORIDE 113 mEq/L (98-107)
[2020-07-09] MEDS ORDERED: MIDAZOLAM HCL 5 MG/5 ML VIAL ONE (08:26)
[2020-07-09] MEDS ORDERED: FENTANYL CITRATE/PF 50MCG/ML 5ML VIAL ONE (08:27)
[2020-07-09] MEDS ORDERED: HEPARIN 1,000 UNITS PREMIX 0 ML IV ONE (08:27)
[2020-07-09] MEDS ORDERED: LIDOCAINE HCL 1% 20ML VIAL (Pyxis) INJ ONE (08:27)
[2020-07-09] MEDS ORDERED: IODIXANOL 320MG/ML 100 ML BOTTLE IV ONE (08:28)
[2020-07-09] MEDS: FAMOTIDINE 20MG/2ML VIAL IV SCH (10:35)
[2020-07-09] MEDS: ENOXAPARIN 80MG/0.8ML SYR SUBCUT SCH (17:11)
[2020-07-09] MEDS: HYDRALAZINE 20MG/ML VIAL IV PRN (17:12)
[2020-07-09] MEDS: CEFTRIAXONE 1,000 MG in DEXTROSE 5% WATER 50 ML IV SCH (20:53)
[2020-07-09] MEDS: LORAZEPAM 2MG/ML CPJ IV PRN (21:07)
[2020-07-09] MEDS: ACETAMINOPHEN 325MG TABLET PO PRN (21:07)
[2020-07-10] VITALS (7 sets, daily range): BP systolic 120–161; BP diastolic 59–80
[2020-07-10] MEDS: ENOXAPARIN 80MG/0.8ML SYR SUBCUT SCH ×2 (05:11→17:07)
[2020-07-10 07:21] LABS: BASOPHILS % 0.8 % (0.0-2.0); EOSINOPHILS % 1.5 % (0.0-5.0); HEMATOCRIT. 29.1 % (36.0-48.0); HEMOGLOBIN. 9.4 g/dL (12.0-16.0); LYMPHOCYTES % 17.2 % (20.0-50.0); MEAN CORPUSCULAR HEMOGLOBIN 28.4 pg (28.0-32.0); MEAN CORPUSCULAR VOLUME 87.5 fL (81.0-99.0); MEAN PLATELET VOLUME 8.1 fl (7.4-10.4); MONOCYTES % 13.8 % (2.0-8.0); NEUTROPHILS % 66.7 % (40.0-76.0); PLATELET 183 x1000/uL (130-400); RED BLOOD CELL COUNT 3.33 mill/uL (4.2-5.4); RED CELL DISTRIBUTION WIDTH 19.2 % (11.6-14.6)
[2020-07-10] MEDS: DEXT 5%/0.45% NACL 1000ML 1,000 ML IV SCH (08:11)
[2020-07-10] MEDS: FAMOTIDINE 20MG/2ML VIAL IV SCH (08:11)
[2020-07-10 08:32] LABS: CHLORIDE 113 mEq/L (98-107)
[2020-07-10] MEDS: ACETAMINOPHEN 325MG TABLET PO PRN (17:08)
[2020-07-10] MEDS: HYDRALAZINE 20MG/ML VIAL IV PRN (19:05)
[2020-07-10] MEDS: LORAZEPAM 2MG/ML CPJ IV PRN (20:35)
[2020-07-10] MEDS: CEFTRIAXONE 1,000 MG in DEXTROSE 5% WATER 50 ML IV SCH (20:35)
[2020-07-11] VITALS (9 sets, daily range): BP systolic 126–166; BP diastolic 47–92
[2020-07-11] MEDS: DEXT 5%/0.45% NACL 1000ML 1,000 ML IV SCH ×2 (03:01→11:34)
[2020-07-11] MEDS: ENOXAPARIN 80MG/0.8ML SYR SUBCUT SCH ×2 (04:58→15:15)
[2020-07-11] MEDS: HYDRALAZINE 20MG/ML VIAL IV PRN ×2 (04:59→16:23)
[2020-07-11 07:20] LABS: BASOPHILS % 0.5 % (0.0-2.0); EOSINOPHILS % 1.8 % (0.0-5.0); HEMATOCRIT. 27.8 % (36.0-48.0); HEMOGLOBIN. 9.3 g/dL (12.0-16.0); LYMPHOCYTES % 13.6 % (20.0-50.0); MEAN CORPUSCULAR HEMOGLOBIN 28.5 pg (28.0-32.0); MEAN CORPUSCULAR VOLUME 85.4 fL (81.0-99.0); MEAN PLATELET VOLUME 7.5 fl (7.4-10.4); MONOCYTES % 12.1 % (2.0-8.0); PLATELET 251 x1000/uL (130-400); RED BLOOD CELL COUNT 3.25 mill/uL (4.2-5.4); RED CELL DISTRIBUTION WIDTH 19.3 % (11.6-14.6)
[2020-07-11 07:22] LABS: CHLORIDE 112 mEq/L (98-107)
[2020-07-11] MEDS: FAMOTIDINE 20MG/2ML VIAL IV SCH (08:38)
[2020-07-11] MEDS ORDERED: LACTULOSE 20G/30ML UDC PO NR (12:30)
[2020-07-11] MEDS: LORAZEPAM 2MG/ML CPJ IV PRN ×2 (15:44→20:26)
[2020-07-11] MEDS: ACETAMINOPHEN 325MG TABLET PO PRN (18:14)
[2020-07-11] MEDS: CEFTRIAXONE 1,000 MG in DEXTROSE 5% WATER 50 ML IV SCH (20:15)
[2020-07-12] VITALS (8 sets, daily range): BP systolic 129–172; BP diastolic 69–90
[2020-07-12] MEDS: DEXT 5%/0.45% NACL 1000ML 1,000 ML IV SCH ×2 (00:11→14:44)
[2020-07-12] MEDS: ENOXAPARIN 80MG/0.8ML SYR SUBCUT SCH ×2 (04:00→16:11)
[2020-07-12] MEDS: FAMOTIDINE 20MG/2ML VIAL IV SCH (10:04)
[2020-07-12] MEDS: HYDRALAZINE 20MG/ML VIAL IV PRN ×2 (12:35→22:10)
[2020-07-12] MEDS ORDERED: LORAZEPAM 2MG/ML CPJ IV PRN (17:15)
[2020-07-12] MEDS: CEFTRIAXONE 1,000 MG in DEXTROSE 5% WATER 50 ML IV SCH (20:00)
[2020-07-12] MEDS ORDERED: IOHEXOL-350 100 ML BOTTLE ONE (23:21)
[2020-07-13] VITALS (8 sets, daily range): BP systolic 127–153; BP diastolic 70–96
[2020-07-13] MEDS: DEXT 5%/0.45% NACL 1000ML 1,000 ML IV SCH ×2 (03:12→16:23)
[2020-07-13] MEDS: ENOXAPARIN 80MG/0.8ML SYR SUBCUT SCH ×2 (06:43→18:32)
[2020-07-13] MEDS: FAMOTIDINE 20MG/2ML VIAL IV SCH (08:45)
[2020-07-13] MEDS: HYDRALAZINE 20MG/ML VIAL IV PRN (10:56)
[2020-07-13] MEDS: ACETAMINOPHEN 325MG TABLET PO PRN (14:11)
[2020-07-13 16:09] LABS: HEMATOCRIT 28.3 % (36.0-48.0); HEMOGLOBIN 9.4 g/dL (12.0-16.0); MEAN CORPUSCULAR HEMOGLOBIN 28.5 pg (28.0-32.0); MEAN CORPUSCULAR VOLUME 86.1 fL (81.0-99.0); PLATELET 212 x1000/uL (130-400); RED BLOOD CELL COUNT 3.29 mill/uL (4.2-5.4); RED CELL DISTRIBUTION WIDTH 20.2 % (11.6-14.6)
[2020-07-13 16:16] LABS: CHLORIDE 112 mEq/L (98-107)
== END 2020-07-13 21:01 | disposition short-term general hospital (02) | DRG 280 ==
LOC: ER 15:02 → EDBEDREQ 19:02 → EDBEDREQTM 19:02 → MICUSO 21:37 → EDBEDREQTM 21:42 → EDBEDREQ 21:42 → EDBEDREQSVC 07-06 07:39 → 3WST 07-06 23:47
PROVIDERS: ADMIT Internal Medicine; ATTEND Internal Medicine
PROC: 05HY33Z Insertion of Infusion Device into Upper Vein, Percutaneous Approach (ICD-10-PCS; principal; 2020-07-06)
PROC: B54MZZA Ultrasonography of Right Upper Extremity Veins, Guidance (ICD-10-PCS; 2020-07-06)
PROC: 30233N1 Transfusion of Nonautologous Red Blood Cells into Peripheral Vein, Percutaneous Approach (ICD-10-PCS; 2020-07-08)
DX: I21.4 Non-ST elevation (NSTEMI) myocardial infarction (principal); J18.9 Pneumonia, unspecified organism; I82.402 Acute embolism and thrombosis of unspecified deep veins of left lower extremity; J44.1 Chronic obstructive pulmonary disease with (acute) exacerbation; I69.359 Hemiplegia and hemiparesis following cerebral infarction affecting unspecified side; G93.40 Encephalopathy, unspecified; J44.0 Chronic obstructive pulmonary disease with (acute) lower respiratory infection; I87.1 Compression of vein; D64.9 Anemia, unspecified; E11.9 Type 2 diabetes mellitus without complications; E78.5 Hyperlipidemia, unspecified; F17.200 Nicotine dependence, unspecified, uncomplicated; I10 Essential (primary) hypertension; I35.0 Nonrheumatic aortic (valve) stenosis; I25.10 Atherosclerotic heart disease of native coronary artery without angina pectoris; Q96.9 Turner's syndrome, unspecified; R13.19 Other dysphagia; Z20.822 Contact with and (suspected) exposure to COVID-19; Z79.82 Long term (current) use of aspirin; Z79.899 Other long term (current) drug therapy; Z88.2 Allergy status to sulfonamides; I69.398 Other sequelae of cerebral infarction; Z93.1 Gastrostomy status; Z79.01 Long term (current) use of anticoagulants
CPT/HCPCS: 36415; 36600; 71045; 71275; 74174; 76937; 80048; 80053; 80061; 81003; 82375; 82805; 82962; 83880; 84439; 84443; 84484; 85014; 85018; 85025; 85027; 86850; 86900; 86920; 87426; 92610; 93005; 93306; 93970; 93971; 96374; 99285; A6261; C1725; J0360; J0696; J1644; J1650; J2060; J2250; J2270; J2405; J3010; J3490; J7060; P9016; Q9967

== ENCOUNTER 2020-09-04 15:10 | Emergency (ER) | payer BC ==
[~2020-09-04] VITALS: Ht 162.6 cm; Wt 59.0 kg
[~2020-09-04 15:10] MED LIST changes: -LISI-604 PO; +LISI20TA31 PO
[2020-09-04 17:19] LABS: BASOPHILS % 0.2 % (0.0-2.0); EOSINOPHILS % 0.4 % (0.0-5.0); HEMATOCRIT. 30.2 % (36.0-48.0); LYMPHOCYTES % 27.6 % (20.0-50.0); MEAN CORPUSCULAR HEMOGLOBIN 28.8 pg (28.0-32.0); MEAN CORPUSCULAR VOLUME 86.8 fL (81.0-99.0); MEAN PLATELET VOLUME 6.6 fl (7.4-10.4); MONOCYTES % 8.4 % (2.0-8.0); NEUTROPHILS % 63.4 % (40.0-76.0); PLATELET 229 x1000/uL (130-400); RED BLOOD CELL COUNT 3.48 mill/uL (4.2-5.4); RED CELL DISTRIBUTION WIDTH 20.1 % (11.6-14.6)
[2020-09-04 17:26] LABS: CHLORIDE 107 mEq/L (98-107)
[2020-09-04] MEDS ORDERED: LEVETIRACETAM 500MG TABLET PO ONE (18:45)
[2020-09-04] MEDS ORDERED: PHENYTOIN SODIUM EXTENDED 100MG CAPSULE PO ONE (18:45)
[2020-09-04] MEDS ORDERED: PHEN100C4 MT (18:46)
[2020-09-04 18:56] VITALS: BP 175/82
[2020-09-04] MEDS ORDERED: PHENYTOIN 100 MG/4 ML UDC PO NR (19:15)
== END 2020-09-04 20:12 | disposition home or self-care (01) ==
LOC: ER 15:10
DX: G40.909 Epilepsy, unspecified, not intractable, without status epilepticus (principal); E11.9 Type 2 diabetes mellitus without complications; I10 Essential (primary) hypertension; I69.354 Hemiplegia and hemiparesis following cerebral infarction affecting left non-dominant side; Z79.82 Long term (current) use of aspirin; Z88.2 Allergy status to sulfonamides
CPT/HCPCS: 36415; 80053; 80185; 82962; 85025; 93005; 99284